=== PATIENT | male | born 1955 | race Caucasian/White ===

== ENCOUNTER 2017-01-29 08:02 | Inpatient (IN) | payer BC, MEDICARE ==
[~2017-01-29] VITALS: Ht 165.1 cm; Wt 110.2 kg
--- NOTE | 2017-01-29 08:16 | NUR ---
PT BIB SELF, REFERRED BY [facility] FOR LEFT UPPER ARM PORT MALFUNCTION. DENIES ANY PAIN. NO SOB. PLACED ON MONITOR. VSS
--- NOTE | 2017-01-29 08:39 | NUR ---
RFA #20 IV ACCESS
--- NOTE | 2017-01-29 08:41 | NUR ---
BLOOD SAMPLE COLLECTED SENT TO LAB
[2017-01-29 08:42] LABS: BASOPHILS % (AUTO) 0.4 % (0.0-2.0); EOSINOPHILS # (AUTO) 0.2 /CMM (0.0-0.7); EOSINOPHILS % (AUTO) 1.8 % (0.0-6.0); HEMATOCRIT 34 % (39-51); HEMOGLOBIN 11.4 g/dL (13.5-17.5); LYMPHOCYTES # (AUTO) 0.5 /CMM (0.8-4.8); LYMPHOCYTES % (AUTO) 4.2 % (20.0-44.0); MEAN CORPUSCULAR HEMOGLOBIN 31 PG (26.0-33.0); MEAN CORPUSCULAR HGB CONC 33 g/dl (31.0-36.0); MEAN CORPUSCULAR VOLUME 93 fL (80-96); MONOCYTES # (AUTO) 0.9 /CMM (0.1-1.30); MONOCYTES % (AUTO) 6.9 % (2.0-12.0); NEUTROPHILS # (AUTO) 10.8 /CMM (1.8-8.9); NEUTROPHILS % (AUTO) 86.7 % (43.0-81.0); PLATELET COUNT (AUTO) 219 /CMM (150-450); RDW COEFFICIENT OF VARIATION 13.2 (11.5-15.0); WHITE BLOOD COUNT (AUTO) 12.5 K/uL (4.3-11.0)
[2017-01-29] MEDS ORDERED: SEVE800T8 PO (08:48)
[2017-01-29] MEDS ORDERED: INSU300I SQ (08:48)
[2017-01-29] MEDS ORDERED: ALBI50PE SQ (08:48)
[2017-01-29] MEDS ORDERED: CLON1TAB4 PO (08:48)
[2017-01-29] MEDS ORDERED: LINA290C PO (08:48)
[2017-01-29] MEDS ORDERED: PREG150C PO (08:48)
[2017-01-29] MEDS ORDERED: CLOP75TA2 PO (08:48)
[2017-01-29] MEDS ORDERED: TRAM50TA2 PO (08:48)
--- NOTE | 2017-01-29 08:55 | NUR ---
[place]TE AT BS.
[2017-01-29 08:59] LABS: CALCIUM, SERUM 7.5 mg/dL (8.5-10.1); CREATININE 6.5 mg/dL (0.6-1.3)
[2017-01-29 09:01] LABS: INR 0.99 (0.87-1.13); PROTHROMBIN TIME 10.6 SECS (9.5-12.7)
--- NOTE | 2017-01-29 09:11 | NUR ---
Dr. armijo paged for admit
--- NOTE | 2017-01-29 10:00 | NUR ---
REPORT GIVEN TO NACHO BANSAL FOR MS 200
--- NOTE | 2017-01-29 10:07 | NUR ---
MS RN NOTES RECEIVED REPORT ON PATIENT. DR MICHELE IS AWARE OF INCOMING ADMISSION
--- NOTE | 2017-01-29 10:19 | NUR ---
TRANSFER PT VIA WHEELCHAIR IN STABLE CONDITION. VSS
[2017-01-29 10:20] VITALS: BP 141/83
--- NOTE | 2017-01-29 10:20 | NUR ---
MS RN OPENING RECEIVED PT A/OX4 DENIES PAIN, SOB, DIFFICULTY BREATHING AT THIS TIME. RESPIRATIONS EQUAL AND UNLABORED. ADMISSION ORDERS PER MD TO BE ENTERED. VS BEING TAKEN. PT STATES NO NEEDS AND LEFT WITH CALL LIGHT IN REACH, BED LOWERED AND LOCKED, RAILS UPX3 FOR SAFETY AND WILL ROUND Q2H OR LESS PER NEEDS
--- NOTE | 2017-01-29 10:21 | NUR ---
MS RN NOTES ORDERS ENTERED PER DR VIERA. DR MICHELE AT BEDSIDE. FAXED HOME MEDICATIONS RECON PER MD TO PHARMACY
[2017-01-29] MEDS ORDERED: DEXTROSE 50%-WATER 50 ML DISP.SYRIN IV PRN (10:30)
[2017-01-29] MEDS ORDERED: hydrALAZINE HCL 25 MG TABLET PO PRN (10:30)
[2017-01-29] MEDS ORDERED: ONDANSETRON HCL/PF 4 MG/2 ML VIAL IV PRN (10:30)
[2017-01-29] MEDS ORDERED: ACETAMINOPHEN 650 MG/20.3 ML UDC NG PRN (10:30)
[2017-01-29] MEDS ORDERED: SODIUM POLYSTYRENE SULFONATE 15 G/60 ML BOTTLE PO ONE (11:00)
[2017-01-29] MEDS: BLOOD SUGAR DIAGNOSTIC 1 EACH STRIP IN SCH ×3 (11:39→21:24)
[2017-01-29] MEDS ORDERED: clonazePAM 1 MG TABLET PO PRN (13:00)
[2017-01-29] MEDS: SEVELAMER CARBONATE 800 MG TABLET PO SCH ×2 (13:11→18:00)
[2017-01-29] MEDS: CLOPIDOGREL BISULFATE 75 MG TABLET PO SCH (13:12)
[2017-01-29 16:00] VITALS: BP 159/83
[2017-01-29] MEDS: PREGABALIN 25 MG CAPSULE PO SCH (18:00)
--- NOTE | 2017-01-29 19:10 | NUR ---
MS RN CLOSING PT STABLE NO COMPLICATIONS NO CHANGES. PT AWARE NPO MIDNIGHT AND 11AM PROCEDURE WITH DR DARLING. ALL DUE MEDS GIVEN AND ALL NEEDS MET. CARE ENDORSED TO WAYNE BANSAL. FAMILY/FRIENDS AT BEDSIDE
--- NOTE | 2017-01-29 19:30 | NUR ---
MS RN OPENING NOTES: PATIENT SITTING ON BED, AOX4, WITH RELATIVES AT BEDSIDE. ON ROOM AIR, BREATHING EVEN AND UNLABORED. DENIES ANY PAIN AT THIS TIME. PIV ACCESS OVER RFA G 20 INTACT AND PATENT TO FLUSH. PATIENT HAS VERNA HD SHUNT. ADVISED PATIENT REGARDING BEING NPO POST MIDNIGHT FOR AN 11:[address] BROWNING (THROMBECTOMY WITH POSS. NEW ACCESS AT L ARM AND POSSIBLE RIGHT VS LEFT TUNNELED DIALYSIS CATHETER PLACEMENT. PROVIDED FOR COMFORT AND SAFETY. CONSENTS SIGNED. WILL CONT TO MONITOR.
--- NOTE | 2017-01-29 19:30 | NUR ---
MS RN NOTES PT SIGNED CONSENTS FOR PROCEDURE
[2017-01-29 20:00] VITALS: BP 142/88
[2017-01-29 22:00] VITALS: BP 142/88
--- NOTE | 2017-01-29 22:00 | NUR ---
RN NOTES: PAGED DR OROZCO (BUSINESS IMPROVEMENT MANAGER) TO VERIFY IF LEVEMIR 20 UNITS CAN BE GIVEN TO PATIENT, BS CURRENTLY IS 128 MG/DL, AND PATIENT WILL BE NPO AFTER MN. AWAITING CALL BACK.
[2017-01-29] MEDS: INSULIN DETEMIR 100 UNIT/ML CARTRIDGE SQ SCH (22:41)
[2017-01-29] MEDS ORDERED: IV SET PRIMARY PUMP SET 1 EA INFUS.SET MC ONE (23:43)
[2017-01-30] MEDS ORDERED: IV D5/ 0.9% NACL 1,000 ML IV PRN
[2017-01-30 06:47] LABS: BASOPHILS % (AUTO) 0.3 % (0.0-2.0); EOSINOPHILS # (AUTO) 0.3 /CMM (0.0-0.7); EOSINOPHILS % (AUTO) 2.5 % (0.0-6.0); HEMATOCRIT 34 % (39-51); HEMOGLOBIN 11.3 g/dL (13.5-17.5); LYMPHOCYTES # (AUTO) 0.5 /CMM (0.8-4.8); LYMPHOCYTES % (AUTO) 4.8 % (20.0-44.0); MEAN CORPUSCULAR HEMOGLOBIN 31 PG (26.0-33.0); MEAN CORPUSCULAR HGB CONC 33 g/dl (31.0-36.0); MEAN CORPUSCULAR VOLUME 93 fL (80-96); MONOCYTES % (AUTO) 8.6 % (2.0-12.0); NEUTROPHILS # (AUTO) 9.3 /CMM (1.8-8.9); NEUTROPHILS % (AUTO) 83.8 % (43.0-81.0); PLATELET COUNT (AUTO) 206 /CMM (150-450); RDW COEFFICIENT OF VARIATION 12.9 (11.5-15.0); RED BLOOD CELL COUNT(AUTO) 3.65 MIL/uL (4.5-6.0); WHITE BLOOD COUNT (AUTO) 11.1 K/uL (4.3-11.0)
[2017-01-30] MEDS: BLOOD SUGAR DIAGNOSTIC 1 EACH STRIP IN SCH ×4 (06:47→21:31)
--- NOTE | 2017-01-30 07:06 | NUR ---
MS RN CLOSING NOTES: PATIENT IN BED, AOX4, ON ROOM AIR, BREATHING EVEN AND UNLABORED. CALM AND IN NO DISTRESS. PIV OVER RFA G 20 INTACT AND PATENT, WITH IVF OF D5NS RUNNING AT 30 ML/HR. MAINTAINED ON NPO. BLOOD SUGAR CHECKED AT 90 MG/DL. NO ACUTE CHANGE IN CONDITION NOTED THROUGH SHIFT. WILL ENDORSE TO AM RN FOR TERESA.
--- NOTE | 2017-01-30 07:20 | NUR ---
MS RN NOTES: PATIENT IN BED, AOX4, ON ROOM AIR, BREATHING EVEN AND UNLABORED. CALM AND IN NO DISTRESS.DENIES ANY PAIN OR DISCOMFORT AT THIS TIME PIV OVER RFA G 20 INTACT AND PATENT AND INTACT NO REDNESS OR INFILTRATION NOTED, WITH IVF OF D5NS RUNNING AT 30 ML/HR. MAINTAINED ON NPO,FOR PROCEDURE TODAY, WILL CONTINUE TO MONITOR.
[2017-01-30 07:35] LABS: CALCIUM, SERUM 7.5 mg/dL (8.5-10.1); CREATININE 6.3 mg/dL (0.6-1.3); MAGNESIUM 2.1 mg/dL (1.8-2.4); PHOSPHORUS 6.1 mg/dL (2.5-4.9); POTASSIUM 4.2 mmol/L (3.5-5.1)
[2017-01-30 08:00] VITALS: BP 138/66
[2017-01-30] MEDS: SEVELAMER CARBONATE 800 MG TABLET PO SCH ×3 (08:00→18:01)
[2017-01-30] MEDS: PREGABALIN 25 MG CAPSULE PO SCH ×2 (09:00→18:07)
[2017-01-30] MEDS: CLOPIDOGREL BISULFATE 75 MG TABLET PO SCH ×2 (09:00→09:05)
[2017-01-30] MEDS ORDERED: Medication Not On Formulary EA (Linaclotide (Linzess) 290 MCG) PO SCH (09:00)
[2017-01-30] MEDS ORDERED: LIDOCAINE HCL/PF 1% 30 ML SDV ONE (10:12)
[2017-01-30] MEDS ORDERED: HEPARIN SODIUM, PORCINE 1,000 UNIT/ML VIAL ONE ×2 (10:12→12:10)
[2017-01-30] MEDS ORDERED: CELLULOSE,OXIDIZED 1 EA PACK MC ONE (10:12)
[2017-01-30] MEDS ORDERED: THROMBIN (BOVINE) 5,000 UNITS VIAL TP ONE (10:12)
[2017-01-30] MEDS ORDERED: CELLULOSE,OXIDIZED 1 EACH EACH MC ONE (10:14)
[2017-01-30] MEDS ORDERED: GELATIN SPONGE,ABSORBABLE 1 EA SPONGE TP ONE (10:20)
[2017-01-30] MEDS ORDERED: FENTANYL PF 100MCG/2ML AMPUL ONE (10:52)
[2017-01-30] MEDS ORDERED: MIDAZOLAM HCL 2 MG/2ML VIAL ONE (10:52)
[2017-01-30] MEDS ORDERED: CLINDAMYCIN 900 MG/6 ML VIAL ONE (10:59)
--- NOTE | 2017-01-30 12:00 | NUR ---
NIMISHA NOTES PT CONTINUES IN OR WILL CONTINUE TO MONITOR UPON ARRIVAL Addendum: 01/30/17 at 1415 by TALIA FINNEGAN RN Amended: Links added.
[2017-01-30] MEDS ORDERED: ALBUTEROL FS 2.5 MG/3 ML VIAL.NEB ONE (13:36)
[2017-01-30] MEDS ORDERED: FUROSEMIDE 20 MG/2 ML VIAL ONE ×2 (13:44)
--- NOTE | 2017-01-30 14:05 | NUR ---
RN NOTES PATIENT BACK FROM OR IN NO APPARENT PAIN OR DISCOMFORT VSS, WILL CONTINUE TO MONITOR
[2017-01-30] MEDS: INSULIN REGULAR, HUMAN 100 UNIT/ML 3 ML VIAL SQ PRN ×3 (15:09→21:38)
[2017-01-30 16:00] VITALS: BP 130/69
[2017-01-30] MEDS: TRAMADOL HCL 50 MG TABLET PO PRN ×2 (16:00→21:34)
[2017-01-30] MEDS ORDERED: LACTULOSE 10 G/15 ML UDC (PYXIS) PO ONE (16:00)
--- NOTE | 2017-01-30 18:28 | NUR ---
MS RN NOTES: PATIENT IN BED, AOX4, ON ROOM AIR, BREATHING EVEN AND UNLABORED. CALM AND IN NO DISTRESS.DENIES ANY PAIN OR DISCOMFORT AT THIS TIME PIV OVER RFA G 20 INTACT AND PATENT AND INTACT NO REDNESS OR INFILTRATION NOTED, RECEIVING HEMODIALYSIS AT THIS TIME WILL CONTINUE TO MONITOR WILL CONTINUE TO MONITOR AND ENDORSE TO NEXT SHIFT FOR CONTINUITY OF CARE
--- NOTE | 2017-01-30 19:30 | NUR ---
RN NOTE; RECEIVED PT SITTING ON THE CHAIR . A, OX4. BREATHING EVENLY. NO SOB. NO DISTRESS. DRESSING S/P SX ON VERNA INTACT W/ NO BLEEDING, NO DISCHARGES. RCW HD CATH INTACT. NO C/O PAIN OR DISCOMFORT. NEEDS ATTENDED. CALL LIGHT WITHIN REACH, WILL CONT TO MONITOR
[2017-01-30 20:00] VITALS: BP 127/65
--- NOTE | 2017-01-30 21:34 | NUR ---
ULTRAM GIVEN ORDERED FOR C/O LUE PAIN. WILL CONT TO MONITOR
[2017-01-30] MEDS: INSULIN DETEMIR 100 UNIT/ML CARTRIDGE SQ SCH (21:37)
--- NOTE | 2017-01-30 21:55 | NUR ---
PT W/ POC OF 424. REMAINED ALERT AND OX4. NO ALOC. NO CHANGE IN MENTAL STATUS. PAGED DR. VIERA AND MADE HIM AWARE W/ A NEW ORDER FOR AN EXTRA 10 UNITS OF REGULAR INSULIN SQ (A TOTAL OF 20U INCLUDING SSI) . NEW ORDER NOTED.
[2017-01-30] MEDS ORDERED: INSULIN REGULAR, HUMAN 100 UNIT/ML 10 ML VIAL SQ ONE (22:00)
--- NOTE | 2017-01-31 06:13 | NUR ---
RN NOTE; PT IN BED AWAKE AND ALERT, BREATHING EVENLY. NO SOB, NO DISTRESS. SKIN WARM AND DRY. DRESSING ON VERNA INTACT, CLEAN AND DRY. NO C/O PAIN OR DISCOMFORT. NO S/S OF HYPO OR HYPERGLYCEMIA. NEEDS ATTENDED. CALL LIGHT WITHIN REACH. WILL CONT TO MONITOR AND WILL ENDORSE TO AM SHIFT FOR TERESA.
[2017-01-31] MEDS: BLOOD SUGAR DIAGNOSTIC 1 EACH STRIP IN SCH (06:48)
[2017-01-31 06:53] LABS: EOSINOPHILS % (AUTO) 0.3 % (0.0-6.0); HEMATOCRIT 32 % (39-51); HEMOGLOBIN 10.6 g/dL (13.5-17.5); LYMPHOCYTES # (AUTO) 0.5 /CMM (0.8-4.8); LYMPHOCYTES % (AUTO) 3.7 % (20.0-44.0); MEAN CORPUSCULAR HEMOGLOBIN 31 PG (26.0-33.0); MEAN CORPUSCULAR HGB CONC 34 g/dl (31.0-36.0); MEAN CORPUSCULAR VOLUME 93 fL (80-96); MONOCYTES # (AUTO) 1.3 /CMM (0.1-1.30); MONOCYTES % (AUTO) 10.1 % (2.0-12.0); NEUTROPHILS # (AUTO) 11.1 /CMM (1.8-8.9); NEUTROPHILS % (AUTO) 85.9 % (43.0-81.0); PLATELET COUNT (AUTO) 191 /CMM (150-450); RDW COEFFICIENT OF VARIATION 13.3 (11.5-15.0); RED BLOOD CELL COUNT(AUTO) 3.38 MIL/uL (4.5-6.0); WHITE BLOOD COUNT (AUTO) 12.9 K/uL (4.3-11.0)
--- NOTE | 2017-01-31 07:31 | NUR ---
MS RN NOTES: PATIENT IN BED, AOX4, ON ROOM AIR, BREATHING EVEN AND UNLABORED. CALM AND IN NO DISTRESS. DENIES ANY PAIN OR DISCOMFORT AT THIS TIME . PIV OVER RFA G 20 INTACT AND PATENT AND INTACT NO REDNESS OR INFILTRATION NOTED. PATIENT DENIED IVF OF D5NS RUNNING AT 30 ML/HR AT THIS TIME. WILL CONTINUE TO MONITOR.
[2017-01-31 07:44] LABS: ALBUMIN 3.2 g/dL (3.4-5.0); BILIRUBIN,TOTAL 0.4 mg/dL (0.2-1.0); CALCIUM, SERUM 7.8 mg/dL (8.5-10.1); CREATININE 5.4 mg/dL (0.6-1.3); MAGNESIUM 2.2 mg/dL (1.8-2.4); PHOSPHORUS 5.3 mg/dL (2.5-4.9)
[2017-01-31 08:00] VITALS: BP 160/84
[2017-01-31] MEDS: CLOPIDOGREL BISULFATE 75 MG TABLET PO SCH (08:30)
[2017-01-31] MEDS: PREGABALIN 25 MG CAPSULE PO SCH (08:30)
[2017-01-31] MEDS: TRAMADOL HCL 50 MG TABLET PO PRN (08:31)
[2017-01-31] MEDS: SEVELAMER CARBONATE 800 MG TABLET PO SCH (08:32)
[2017-01-31] MEDS ORDERED: ALBIGLUTIDE 50 MG SQ SCH (09:00)
--- NOTE | 2017-01-31 10:00 | NUR ---
RN NOTE PT SEEN BY SOHA CM WITH ORDERS FOR DISCHARGE. WILL CONTINUE TO MONITOR AND ASSIST WITH DISCHARGE PROCESS.
--- NOTE | 2017-01-31 10:20 | NUR ---
MS RN NOTES: PATIENT IN CHAIR AWAKE AND AOX4, ON ROOM AIR, BREATHING EVEN AND UNLABORED. CALM AND IN NO DISTRESS. DENIES ANY PAIN OR DISCOMFORT AT THIS TIME . REMOVED PIV OVER RFA G 20. NO ADVERSE REACTIONS NOTED. PATIENT WITH DISCHARGE ORDER. ALL BELONGINGS ACCOUNTED FOR. PICTURES OF LEFT ARM POST SURGICAL SITE TAKEN. ALL DISCHARGE INSTRUCTIONS PROVIDED AND REVIEWED WITH PATIENT WITH GOOD VERBAL UNDERSTANDING. PATIENT ASSISTED TO LOBBY BY ACCOUNT RESOLUTION EXPERT. DISCHARGE IN STABLE CONDITION. WILL HAVE DIALYSIS OUTPATIENT.
== END 2017-01-31 10:20 | disposition home or self-care (01) | DRG 264 ==
LOC: ER 08:04 → MEDSG2 10:00
PROVIDERS: ADMIT Internal Medicine Nephrology; ATTEND Internal Medicine Nephrology
PROC: 05HM33Z Insertion of Infusion Device into Right Internal Jugular Vein, Percutaneous Approach (ICD-10-PCS; 2017-01-30)
PROC: B513YZA Fluoroscopy of Right Jugular Veins using Other Contrast, Guidance (ICD-10-PCS; 2017-01-30)
PROC: 5A1D00Z (ICD-10-PCS; 2017-01-30)
PROC: 03180ZD Bypass Left Brachial Artery to Upper Arm Vein, Open Approach (ICD-10-PCS; principal; 2017-01-30 11:42)
DX: T82.868A Thrombosis due to vascular prosthetic devices, implants and grafts, initial encounter (principal); N18.6 End stage renal disease; Z99.2 Dependence on renal dialysis; I25.10 Atherosclerotic heart disease of native coronary artery without angina pectoris; D72.829 Elevated white blood cell count, unspecified; E11.22 Type 2 diabetes mellitus with diabetic chronic kidney disease; D63.8 Anemia in other chronic diseases classified elsewhere; I25.2 Old myocardial infarction; Z98.61 Coronary angioplasty status; Z88.0 Allergy status to penicillin; Y84.9 Medical procedure, unspecified as the cause of abnormal reaction of the patient, or of later complication, without mention of misadventure at the time of the procedure; Y92.009 Unspecified place in unspecified non-institutional (private) residence as the place of occurrence of the external cause; E83.9 Disorder of mineral metabolism, unspecified
CPT/HCPCS: 36415; 71010-TC; 80048-TC; 80053-TC; 82962-TC; 83735-TC; 84100-TC; 85025-TC; 85730-TC; 86850-TC; 87040-TC; 87081-TC; A4606; A6209; A6253; A6402; C1750; C1757; C1769; J1100; J1644; J1815; J1940; J2250; J2704; J3010; J3490; J7042; Z7610